=== PATIENT | female | born 1965 | race Caucasian/White ===

== ENCOUNTER 2017-08-24 15:36 | Emergency (ER) | payer BC ==
[~2017-08-24] VITALS: Ht 162.6 cm; Wt 63.0 kg
[~2017-08-24 15:36] MED LIST: IBUP-1428 PO; MULT-506 PO; SUMA100T16 PO
[2017-08-24 16:01] VITALS: Ht 162.6 cm; Wt 63.0 kg
[2017-08-24] MEDS ORDERED: ACETAMINOPHEN 325 MG TAB PO STA (17:25)
[2017-08-24] MEDS ORDERED: SODIUM CHLORIDE 0.9% 1000ML 1,000 ML IV STA (17:25)
[2017-08-24] MEDS ORDERED: CALC-8 PO (17:47)
[2017-08-24] MEDS ORDERED: IBUP-103 PO (17:47)
[2017-08-24] MEDS ORDERED: PSEU30TA64 PO (17:47)
[2017-08-24] MEDS ORDERED: FLAX10007 PO (17:47)
[2017-08-24] MEDS ORDERED: ACET-1311 PO (17:47)
[2017-08-24] MEDS ORDERED: LEVO25TA5 PO (17:47)
[2017-08-24] MEDS ORDERED: SUMA50TA15 PO (17:49)
[2017-08-24 18:58] LABS: BASO % 0.2 %; BASO ABS # 0.02 K/uL (0-0.2); COMPLETE YES; EOS % 0.2 %; HEMATOCRIT 36.1 % (37-47); IG% 0.2 %; LYMPH % 7.9 %; LYMPH ABS # 0.73 K/uL (1.2-3.4); MEAN CELL VOLUME 93.3 fL (80-100); MEAN CORPUSCULAR HEMOGLOBIN 31.8 pg (25-34); MEAN CORPUSCULAR HGB CONC 34.1 g/dl (32-36); MEAN PLATELET VOLUME 9.1 fL (7.4-10.4); MONO % 10.5 %; PLATELET COUNT 204 K/uL (130-400); RED BLOOD COUNT 3.87 M/uL (4.2-5.4); WHITE BLOOD COUNT 9.28 K/uL (4.8-10.8)
[2017-08-24 18:59] LABS: BUN/CREATININE RATIO 10.7 (10-20); CALCIUM 8.3 mg/dl (8.5-10.1); CREATININE 0.77 mg/dl (0.60-1.20); POTASSIUM 3.8 mmol/L (3.5-5.1)
[2017-08-24 19:06] LABS: URINE APPEARANCE CLOUDY (CLEAR); URINE BILIRUBIN NEG (NEG); URINE COLOR YELLOW; URINE NITRITE POS (NEG); URINE SPECIFIC GRAVITY 1.007 (1.000-1.030); UROBILINOGEN NEG (NEG)
[2017-08-24 19:08] LABS: MANUAL MICROSCOPIC REQUIRED? NO; REVIEW REQ? NO
[2017-08-24] MEDS ORDERED: CIPROFLOXACIN 400MG / 200ML D5W IV STA (19:22)
[2017-08-24 19:32] LABS: LYME DISEASE AB IGG NEG (NEG)
[2017-08-24 19:33] LABS: LYME DISEASE AB IGM EQUIVOCAL (NEG)
[2017-08-24] MEDS ORDERED: AMOX875T PO (20:02)
[2017-08-24] MEDS ORDERED: EMPTY 8 DRAM VIAL ONE (20:40)
[2017-08-24] MEDS ORDERED: AMOXICILLIN/CLAVULANATE TAB 875 MG TAB PO SCH (21:00)
[2017-08-24 21:50] VITALS: BP 110/74; PULSE 86; TEMP 37.1; O2SAT 100
--- NOTE | 2017-08-24 22:36 | EMERGENCY ROOM VISIT NOTE ---
History Report prepared by Wilma: Kelli Johns Under the Supervision of: Dr. Humberto Obrien M.D. First contact with patient: 17:17 Chief Complaint: ILLNESS Stated Complaint: UTI History of Present Illness The patient is a 51 year old female who presents to the Emergency Room with complaints of illness starting Sunday. Today, the patient was seen at an Urgent Care in [place] and had a urine taken there. They referred her the the ED and told her she has a UTI. The patient notes chills, headache, fever and aches in her hands and legs. Patient states that the headaches feel like her migraines. She does have a history of migraines and the headaches do improve somewhat with Imitrex and OTC medications. The patient notes slight burning when urinating that began on Sunday. She denies any cold symptoms, vomiting, and back pain. The patient took 200 mg of Advil at 3:20pm. She denies any tick bites or rash. Source of History: patient Onset: Sunday Position: other (global) Quality: other (fever) Timing: intermittent Associated Symptoms: + fevers, + chills, + headache, + urinary symptoms, No vomiting, No back pain Review of Systems See HPI for pertinent positives & negatives. A total of 10 systems reviewed and were otherwise negative. Past Medical & Surgical Medical Problems: (1) Migraines Family History no pertinent family history stated Social History Smoking Status: Former Smoker Marital Status: Current/Historical Medications Scheduled Amoxicillin & Pot Clavulanate (Augmentin 875-125 mg), 875 MG PO BID Flaxseed (Linseed) (Flax Seed Oil), 1,000 MG PO DAILY Levothyroxine Sodium (Levothyroxine Sodium), 25 MCG PO DAILY Multiple Minerals W/ Vitamins (Calcium/Magnesium/Zinc), 1 TAB PO DAILY Scheduled PRN Acetaminophen (Tylenol), 325 MG PO Q6H PRN for Pain Ibuprofen Tab (Advil), 200 MG PO Q4H PRN for Pain Pseudoephedrine Hcl (Sudafed), 30 MG PO UD PRN for Sinus Congestion Sumatriptan Succinate (Imitrex), 50 MG PO UD PRN for Migraine Allergies Coded Allergies: No Known Allergies (Verified , 05/13/10) Physical Exam Vital Signs Date Time Temp Pulse Resp B/P (MAP) Pulse Ox O2 Delivery O2 Flow Rate FiO2 10/20/17 21:50 37.1 86 18 110/74 100 08/24/17 19:47 85 18 120/77 99 Room Air 08/24/17 18:47 90 18 128/75 99 Room Air 08/24/17 16:01 38.2 112 18 123/69 95 Room Air Physical Exam Constitutional: Vital signs reviewed. Eyes: Pupils are equal round reactive to light. Conjunctiva are noninjected. ENT: Pharynx is clear without erythema or exudate. Mucous membranes are moist. Neck supple without meningeal signs. Respiratory: Clear to auscultation bilaterally. Breath sounds are equal bilaterally. Cardiovascular: Regular rate and rhythm. No rubs or gallops. GI: Soft, nondistended and nontender. Bowel sounds are present. Musculoskeletal: No peripheral edema. No joint swelling No CVA tenderness. Integumentary: No cyanosis. Neurological: The patient is awake and alert. No focal deficits. Psychiatric: Normal affect. Medical Decision & Procedures Laboratory Results 08/24/17 18:00 Red Blood Count 3.87, Mean Corpuscular Volume 93.3, Mean Corpuscular Hemoglobin 31.8, Mean Corpuscular Hemoglobin Concent 34.1, Mean Platelet Volume 9.1, Neutrophils (%) (Auto) 81.0, Lymphocytes (%) (Auto) 7.9, Monocytes (%) (Auto) 10.5, Eosinophils (%) (Auto) 0.2, Basophils (%) (Auto) 0.2, Neutrophils # (Auto ) 7.52, Lymphocytes # (Auto) 0.73, Monocytes # (Auto) 0.97, Eosinophils # (Auto ) 0.02, Basophils # (Auto) 0.02 08/24/17 18:00 Test 08/24/17 17:58 08/24/17 18:00 08/24/17 18:50 Influenza Type A Antigen Neg for Influ A (NEG) Influenza Type B Antigen Neg for Influ B (NEG) White Blood Count 9.28 K/uL (4.8-10.8) Red Blood Count 3.87 M/uL (4.2-5.4) Hemoglobin 12.3 g/dL (12.0-16.0) Hematocrit 36.1 % (37-47) Mean Corpuscular Volume 93.3 fL (80-100) Mean Corpuscular Hemoglobin 31.8 pg (25-34) Mean Corpuscular Hemoglobin Concent 34.1 g/dl (32-36) Platelet Count 204 K/uL (130-400) Mean Platelet Volume 9.1 fL (7.4-10.4) Neutrophils (%) (Auto) 81.0 % Lymphocytes (%) (Auto) 7.9 % Monocytes (%) (Auto) 10.5 % Eosinophils (%) (Auto) 0.2 % Basophils (%) (Auto) 0.2 % Neutrophils # (Auto) 7.52 K/uL (1.4-6.5) Lymphocytes # (Auto) 0.73 K/uL (1.2-3.4) Monocytes # (Auto) 0.97 K/uL (0.11-0.59) Eosinophils # (Auto) 0.02 K/uL (0-0.5) Basophils # (Auto) 0.02 K/uL (0-0.2) RDW Standard Deviation 43.7 fL (36.4-46.3) RDW Coefficient of Variation 12.8 % (11.5-14.5) Immature Granulocyte % (Auto) 0.2 % Immature Granulocyte # (Auto) 0.02 K/uL (0.00-0.02) Anion Gap 6.0 mmol/L (3-11) Est Creatinine Clear Calc Drug Dose 73.0 ml/min Estimated GFR () 102.2 Estimated GFR (Non- 88.2 BUN/Creatinine Ratio 10.7 (10-20) Calcium Level 8.3 mg/dl (8.5-10.1) Total Bilirubin 0.6 mg/dl (0.2-1) Direct Bilirubin 0.1 mg/dl (0-0.2) Aspartate Amino Transf (AST/SGOT) 103 U/L (15-37) Alanine Aminotransferase (ALT/SGPT) 125 U/L (12-78) Alkaline Phosphatase 128 U/L (45-117) Total Protein 7.2 gm/dl (6.4-8.2) Albumin 3.3 gm/dl (3.4-5.0) Lyme Disease IgG Antibody NEG (NEG) Monoscreen NEG (NEG) Urine Color YELLOW Urine Appearance CLOUDY (CLEAR) Urine pH 6.0 (4.5-7.5) Urine Specific [place] 1.007 (1.000-1.030) Urine Protein NEG (NEG) Urine Glucose (UA) NEG (NEG) Urine Ketones 1+ (NEG) Urine Occult Blood 2+ (NEG) Urine Nitrite POS (NEG) Urine Bilirubin NEG (NEG) Urine Urobilinogen NEG (NEG) Urine Leukocyte Esterase LARGE (NEG) Urine WBC (Auto) >30 /hpf (0-5) Urine RBC (Auto) 5-10 /hpf (0-4) Urine Hyaline Casts (Auto) 1-5 /lpf (0-5) Urine Epithelial Cells (Auto) 5-10 /lpf (0-5) Urine Bacteria (Auto) 4+ (NEG) Laboratory results as reviewed by me. Medications Administered Medications (Trade) Dose Ordered Sig/Rupinder Route Start Time Stop Time Status Last Admin Dose Admin Sodium Chloride 1,000 ml @ 999 mls/hr Q1H1M STAT IV 08/24/17 17:25 08/24/17 18:25 DC 08/24/17 17:25 999 MLS/HR Acetaminophen (Tylenol Tab) 650 mg NOW STAT PO 08/24/17 17:25 08/24/17 17:27 DC 08/24/17 17:55 650 MG Ciprofloxacin/ Dextrose (Cipro / D5W) 400 mg NOW STAT IV 08/24/17 19:22 08/24/17 19:23 DC 08/24/17 19:43 400 MG Amoxicillin/ Clavulanate Potassium (Augmentin Tab) 875 mg BID PO 08/24/17 21:00 08/24/17 22:31 DC 08/24/17 20:42 875 MG ED Course 1719: The patient was evaluated in room C10. A complete history and physical exam was performed. 1725: Tylenol Tab 650 mg PO, Sodium Chloride 1000 ml @ 999 mls/hr IV. 1922: Cipro/DSW 400 mg IV. 1950: I discussed test results, elevated liver test, and equivocal line test with the patient. 2004: Upon reevaluation, the patient appeared to have improvement of her symptoms. I discussed tonight's findings with the patient. She verbalized agreement of the treatment plan. The patient was discharged home. 2100: Augmentin Tab 875 mg PO. Medical Decision This is a 51-year-old female who presents with fever. Differential diagnosis includes UTI, pyelonephritis, Lyme disease, viral syndrome, influenza. I did perform a limited focused review of portions of the patient's old chart on the electronic medical record. The patient has had no recent pertinent visits to this hospital. I did evaluate the patient as noted above. The patient is presenting with fever , headaches and body aches. She was seen at an urgent care center and diagnosed with a UTI but sent here for further evaluation. She states her headaches feel like her migraines and respond to Imitrex and [id number] medications. She does not have any meningeal signs. IV access was established. I did treat her with normal saline IV. She was also given Tylenol. I did order and personally review the patient's urine analysis as described above. A urine culture was sent. I did treat her with Cipro IV. I did order and review the patient's blood work as noted in the electronic medical record. Her white blood cell count is not elevated. Monospot is negative. Lyme testing is equivocal. Rapid flu testing was negative. She does have abnormal LFTs. I did reassess the patient. I did discuss the test results with the patient. After discussion of the test results including the abnormalities and equivocal Lyme titer it was decided that we would treat her with a single agent, Augmentin, to cover both Lyme disease as well as her UTI. The patient preferred not to be placed on Cipro and doxycycline. A western blot is pending and the patient will follow up with her doctor for the results of this. She understands if her western blot is positive she will need to more weeks of additional antibiotics to cover Lyme disease. She also was advised to have her doctor repeat her LFTs. The patient was discharged in good condition. Medication Reconcilliation Current Medication List: was personally reviewed by me Blood Pressure Screening Patient's blood pressure: Normal blood pressure Impression Primary Impression: UTI (urinary tract infection) Additional Impressions: Positive Lyme disease serology Migraine headache without aura Elevated LFTs Scribe Attestation The scribe's documentation has been prepared under my direct and personally reviewed by me in its entirety. I confirm that the note above accurately reflects all work, treatment, procedures, and medical decision making performed by me. Departure Information Dispostion Home / Self-Care Prescriptions Amoxicillin & Pot Clavulanate (Augmentin 875-125 mg) 1 Tab Tab 875 MG PO BID for 10 Days, #20 TAB Prov: Micah, Humberto S.,M.D. 08/24/17 Referrals Sara Machuca D.O. (PCP) Forms HOME CARE DOCUMENTATION FORM, IMPORTANT VISIT INFORMATION, WORK / SCHOOL INSTRUCTIONS Patient Instructions ED UTI Cystitis Female, My [facility] Additional Instructions You have been examined and treated today on an emergency basis only. This is not a substitute for, or an effort to provide, complete comprehensive medical care. It is impossible to recognize and treat all injuries or illnesses in a single emergency department visit. It is therefore important that you follow up closely with your physician. Call as soon as possible for an appointment. Return for worsening symptoms or if you develop vomiting, joint swelling, rash or any other concerning symptoms. Have your doctor recheck your liver function tests which were slightly elevated today. Also has your doctor checked the Western blot test to confirm whether or not you have Lyme disease. If this test is positive he will need an additional 2 weeks of antibiotics for Lyme disease. Problem Qualifiers Primary Impression: UTI (urinary tract infection) Urinary tract infection type: acute cystitis Additional Impressions: Migraine headache without aura Status migrainosus presence: without status migrainosus Intractability: not intractable Qualified Codes: G43.009 - Migraine without aura, not intractable , without status migrainosus
== END 2017-08-24 21:51 | disposition home or self-care (01) ==
LOC: C.EDB 15:37 → C.EDC 21:51
DX: N39.0 Urinary tract infection, site not specified (principal); A69.20 Lyme disease, unspecified; G43.009 Migraine without aura, not intractable, without status migrainosus; R94.5 Abnormal results of liver function studies; Z87.891 Personal history of nicotine dependence

== ENCOUNTER → 2018-05-30 | Outpatient (CLI) | payer OTHER ==
[~2018-05-30] MED LIST changes: +ACET-1311 PO; +CALC-8 PO; +FLAX10007 PO; +IBUP-103 PO; -IBUP-1428 PO; +LEVO25TA5 PO; -MULT-506 PO; +PSEU30TA64 PO; -SUMA100T16 PO; +SUMA50TA15 PO
--- NOTE | 2018-05-31 15:39 | MAMMOGRAPHY REPORT ---
BREAST MRI OF BOTH BREASTS: 05/30/2018 CLINICAL HISTORY: History of right breast cancer status post bilateral mastectomy with implant recons truction. Rule out implant rupture. COMPARISON: Comparison is made to exam dated: 02/24/2009 mammograms. Technique: The patient was placed prone in a dedicated breast imaging coil. Axial and sagittal T2 ST IR water suppression sequences were obtained. No contrast was given. Findings: Bilateral subpectoral silicone implants are present. The implants are intact without evidence of int racapsular or extracapsular rupture. The remainder of the visualized soft tissues are grossly unrema rkable on noncontrast images. Note that the exam is tailored for evaluation for implants, and as no c ontrast was given the exam does not evaluate for breast malignancy. IMPRESSION: ACR BI-RADS CATEGORY 2: BENIGN Intact silicone implants bilaterally, without evidence of rupture. Nikia Dowling M.D. 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 BI-RADS Code: ACR BI-RADS Category 2: Benign
== END | disposition home or self-care (01) ==
LOC: C.MRI 05-21 09:45
PROVIDERS: ATTEND Physician Assistant
DX: Z85.3 Personal history of malignant neoplasm of breast (principal); Z98.82 Breast implant status; Z98.890 Other specified postprocedural states